=== PATIENT | female | born 1950 | race Caucasian/White ===

== ENCOUNTER 2019-09-01 16:30 | Observation (INO) | payer MEDICARE, OTHER ==
[2019-09-01] MEDS ORDERED: Sodium Chloride 0.9% 10 ML Syringe FLUSH PRN (16:45)
[2019-09-01] MEDS ORDERED: Sodium Chloride 0.9% 2.5 ML Syringe FLUSH PRN (16:45)
[2019-09-01] MEDS ORDERED: Meclizine 25 MG Tab PO ONE (17:03)
[2019-09-01] MEDS ORDERED: Sodium Chloride 0.9% 1,000 ML IV ONE (17:03)
[2019-09-01] MEDS ORDERED: Ondansetron 4 MG/2 ML SDV IVPUSH ONE (17:03)
--- NOTE | 2019-09-01 17:03 | EDM.PDOC ---
ED HPI GENERAL MEDICAL PROBLEM - General Chief Complaint: Cardiovascular Problem Stated Complaint: DIZZY Time Seen by Provider: 09/01/19 16:44 Source of Information: Reports: Patient History Limitations: Reports: No Limitations - History of Present Illness INITIAL COMMENTS - FREE TEXT/NARRATIVE: HISTORY AND PHYSICAL: History of present illness: Patient is a 69-year-old female who presents to the ED today with concern of dizziness and vomiting since this morning. Patient states when she woke up she went to go to the bathroom and felt as if she was off balance and like the room was spinning or tilted. Patient states when she got to the bathroom she felt nauseous and vomited. Patient states since then she is had a few episodes of this dizziness with vomiting. Patient states that if she lays still and does not move her head she does not have the dizziness but if she goes to turn or look in a different direction she feels dizzy and nauseous. Patient denies fever, chills, chest pain, shortness of breath, or cough. Denies headache, neck stiff ness, change in vision, syncope, or near syncope. Denies abdominal pain, diarrhea, constipation, or dysuria. Has not noted any blood in urine or stool. Patient has been eating and drinking appropriately. Review of systems: As per history of present illness and below otherwise all systems reviewed and negative. Past medical history: As per history of present illness and as reviewed below otherwise noncontributory. Surgical history: As per history of present illness and as reviewed below otherwise noncontributory. Social history: See social history for further information Family history: As per history of present illness and as reviewed below otherwise noncontributory. Physical exam: General: Patient is alert, oriented, and in no acute distress. Patient laying comfortably on exam table. HEENT: Atraumatic, normocephalic, pupils equal and reactive bilaterally, negative for conjunctival pallor or scleral icterus, mucous membranes moist, TMs normal bilaterally, throat clear, neck supple, nontender, trachea midline. No drooling or trismus noted. No meningeal signs. No hot potato voice noted. Lungs: Clear to auscultation, breath sounds equal bilaterally, chest nontender. Heart: S1S2, regular rate and rhythm without overt murmur Abdomen: Soft, nondistended, nontender. Negative for masses or hepatosplenomegaly. Negative for costovertebral tenderness. Pelvis: Stable nontender. Genitourinary: Deferred. Rectal: Deferred. Skin: Intact, warm, dry. No lesions or rashes noted. Extremities: Atraumatic, negative for cords or calf pain. Neurovascular unremarkable. Neuro: Awake, alert, oriented. Cranial nerves II through XII unremarkable. Cerebellum unremarkable. Motor and sensory unremarkable throughout. Exam nonfocal. Notes: Dr. Andrew verbally involved in patient care. Patient states she is developing a slight headache and requesting tylenol. Dr. Owens consulted on patient and will admit to observation on telemetry. Voices understanding and is agreeable to plan of care. Denies any further questions or concerns at this time. Diagnostics: CBC, CMP, UA, EKG, CXR, Trop, head CT, orthostatic vitals, lactate, blood culture x 2, urine culture Therapeutics: NS, meclizine, zofran, Tylenol Impression: Leukocytosis, etiology unknown Dizziness Plan: Admit to observation to Dr. Owens on telemetry Definitive disposition and diagnosis as appropriate pending reevaluation and review of above. Chest Pain Score (Numeric/FACES): 1 - Related Data Allergies Allergy/AdvReac Type Severity Reaction Status Date / Time Sulfa (Sulfonamide Allergy Rash Verified 09/01/19 16:39 Antibiotics) Home Meds: Home Meds Fish Oil/[place]-3 Fatty Acids [Fish Oil 1,000 MG] 1 each PO ASDIRECTED 09/01/19 [ History] Metoprolol Succinate 50 mg PO ASDIRECTED 09/01/19 [History] Past Medical History Cardiovascular History: Reports: Hypertension - Infectious Disease History Infectious Disease History: Reports: None Social & Family History - Family History Family Medical History: Noncontributory - Tobacco Use Smoking Status *Q: Never Smoker Second Hand Smoke Exposure: No - Caffeine Use Caffeine Use: Reports: None - Recreational Drug Use Recreational Drug Use: No ED ROS GENERAL - Review of Systems Review Of Systems: Comprehensive ROS is negative, except as noted in HPI. ED EXAM, GENERAL - Physical Exam Exam: See Below (see dictation) Course - Vital Signs Last Recorded V/S: Last Vital Signs Temp 97.4 F 09/01/19 16:40 Pulse 117 H 09/01/19 16:40 Resp 18 09/01/19 16:40 BP 180/90 H 09/01/19 16:40 Pulse Ox 97 09/01/19 16:40 Orthostatic Blood Pressure [ 181/88 Standing] Orthostatic Blood Pressure [ 171/85 Sitting] Orthostatic Blood Pressure [ 162/87 Supine] - Orders/Labs/Meds Orders: Active Orders 24 hr Category Date Time Status Admission Status [Patient Status] [ADT] Stat ADT 09/01/19 19:26 Ordered EKG Documentation Completion [RC] STAT Care 09/01/19 16:45 Active Orthostatic Vital Signs [RC] ASDIRECTED Care 09/01/19 16:45 Active CULTURE BLOOD [BC] Stat Lab 09/01/19 19:16 Ordered CULTURE BLOOD [BC] Stat Lab 09/01/19 19:16 Ordered LACTATE WITH REFLEX [BG] Stat Lab 09/01/19 19:16 Ordered Sodium Chloride 0.9% [Saline Flush] Med 09/01/19 16:45 Active 10 ml FLUSH ASDIRECTED PRN Sodium Chloride 0.9% [Saline Flush] Med 09/01/19 16:45 Active 2.5 ml FLUSH ASDIRECTED PRN Blood Culture x2 Reflex Set [OM.PC] Stat Oth 09/01/19 19:16 Ordered Saline Lock Insert [OM.PC] Stat Oth 09/01/19 16:45 Ordered Medication Orders Sodium Chloride (Saline Flush) 10 ml FLUSH ASDIRECTED PRN PRN Reason: Keep Vein Open Last Admin: 09/01/19 17:12 Dose: 10 ml Sodium Chloride (Saline Flush) 2.5 ml FLUSH ASDIRECTED PRN PRN Reason: Keep Vein Open Last Admin: 09/01/19 17:12 Dose: 2.5 ml Labs: Laboratory Tests 09/01/19 09/01/19 09/01/19 Range/Units 16:45 16:45 18:27 WBC 38.87 H (4.0-11.0) K/uL RBC 4.85 (4.30-5.90) M/uL Hgb 15.1 (12.0-16.0) g/dL Hct 44.2 (36.0-46.0) % MCV 91.1 (80.0-98.0) fL MCH 31.1 (27.0-32.0) pg MCHC 34.2 (31.0-37.0) g/dL RDW Std Deviation 43.3 (28.0-62.0) fl RDW Coeff of Sujit 13 (11.0-15.0) % Plt Count 325 (150-400) K/uL MPV 10.90 (7.40-12.00) fL Add Manual Diff YES Neutrophils % (Manual) 32 L (48.0-80.0) % Lymphocytes % (Manual) 60 H (16.0-40.0) % Monocytes % (Manual) 7 (0.0-15.0) % Eosinophils % (Manual) 1 (0.0-7.0) % Nucleated RBC % 0.0 /100WBC Absolute Seg Neuts 12.4 H (1.4-5.7) Band Neutrophils # 23.3 Lymphocytes # (Manual) 23.3 H (0.6-2.4) Monocytes # (Manual) 2.7 H (0.0-0.8) Eosinophils # (Manual) 0.4 (0.0-0.7) Nucleated RBCs # 0 K/uL Atypical Lymphocytes MODERATE Smudge Cells FEW Sodium 142 (136-145) mmol/L Potassium 3.8 (3.5-5.1) mmol/L Chloride 103 (98-107) mmol/L Carbon Dioxide 28.6 (21.0-32.0) mmol/L BUN 17 (7.0-18.0) mg/dL Creatinine 0.8 (0.6-1.0) mg/dL Est Cr Clr Drug Dosing 50.08 mL/min Estimated GFR (MDRD) > 60.0 ml/min Glucose 116 H (74-106) mg/dL Calcium 10.0 (8.5-10.1) mg/dL Total Bilirubin 0.5 (0.2-1.0) mg/dL AST 19 (15-37) IU/L ALT 36 (14-63) IU/L Alkaline Phosphatase 49 (46-116) U/L Troponin I < 0.050 (0.000-0.056) ng/mL Total Protein 7.9 (6.4-8.2) g/dL Albumin 4.6 (3.4-5.0) g/dL Globulin 3.3 (2.6-4.0) g/dL Albumin/Globulin Ratio 1.4 (0.9-1.6) Lipase 201 (73-393) U/L Urine Color YELLOW Urine Appearance CLEAR Urine pH 6.0 (5.0-8.0) Ur Specific [place] 1.015 (1.001-1.035) Urine Protein NEGATIVE (NEGATIVE) mg/dL Urine Glucose (UA) NEGATIVE (NEGATIVE) mg/dL Urine Ketones NEGATIVE (NEGATIVE) mg/dL Urine Occult Blood NEGATIVE (NEGATIVE) Urine Nitrite NEGATIVE (NEGATIVE) Urine Bilirubin NEGATIVE (NEGATIVE) Urine Urobilinogen 0.2 (<2.0) EU/dL Ur Leukocyte Esterase NEGATIVE (NEGATIVE) Meds: Medications Generic Name Dose Route Start Last Admin Trade Name Freq PRN Reason Stop Dose Admin Sodium Chloride 10 ml 09/01/19 16:45 09/01/19 17:12 Saline Flush FLUSH 10 ml ASDIRECTED PRN Administration Keep Vein Open Sodium Chloride 2.5 ml 09/01/19 16:45 09/01/19 17:12 Saline Flush FLUSH 2.5 ml ASDIRECTED PRN Administration Keep Vein Open Discontinued Medications Generic Name Dose Route Start Last Admin Trade Name Freq PRN Reason Stop Dose Admin Acetaminophen 1,000 mg 09/01/19 18:37 09/01/19 18:48 Tylenol Extra Strength PO 09/01/19 18:38 1,000 mg ONETIME ONE Administration Sodium Chloride 1,000 mls @ 999 mls/hr 09/01/19 17:03 09/01/19 17:10 Normal Saline IV 09/01/19 18:03 999 mls/hr STAT ONE Administration Meclizine HCl 25 mg 09/01/19 17:03 09/01/19 17:11 Antivert PO 09/01/19 17:04 25 mg ONETIME ONE Administration Ondansetron HCl 4 mg 09/01/19 17:03 09/01/19 17:11 Zofran IVPUSH 09/01/19 17:04 4 mg ONETIME ONE Administration Departure - Departure Time of Disposition: 19:33 Disposition: Refer to Observation Clinical Impression: Dizziness Leukocytosis Qualifiers: Leukocytosis type: unspecified Qualified Code(s): D72.829 - Elevated white blood cell count, unspecified Forms: ED Department Discharge Sepsis Event Note - Evaluation Sepsis Screening Result: No Definite Risk - Focused Exam Vital Signs: Vital Signs Temp Pulse Resp BP Pulse Ox 09/01/19 16:40 97.4 F 117 H 18 180/90 H 97 Date Exam was Performed: 09/01/19 Time Exam was Performed: 19:32 - My Orders Last 24 Hours: My Active Orders 09/01/19 16:45 EKG Documentation Completion [RC] STAT Orthostatic Vital Signs [RC] ASDIRECTED Sodium Chloride 0.9% [Saline Flush] 10 ml FLUSH ASDIRECTED PRN Sodium Chloride 0.9% [Saline Flush] 2.5 ml FLUSH ASDIRECTED PRN Saline Lock Insert [OM.PC] Stat 09/01/19 19:16 CULTURE BLOOD [BC] Stat CULTURE BLOOD [BC] Stat LACTATE WITH REFLEX [BG] Stat Blood Culture x2 Reflex Set [OM.PC] Stat 09/01/19 19:26 Admission Status [Patient Status] [ADT] Stat - Assessment/Plan Last 24 Hours: My Active Orders 09/01/19 16:45 EKG Documentation Completion [RC] STAT Orthostatic Vital Signs [RC] ASDIRECTED Sodium Chloride 0.9% [Saline Flush] 10 ml FLUSH ASDIRECTED PRN Sodium Chloride 0.9% [Saline Flush] 2.5 ml FLUSH ASDIRECTED PRN Saline Lock Insert [OM.PC] Stat 09/01/19 19:16 CULTURE BLOOD [BC] Stat CULTURE BLOOD [BC] Stat LACTATE WITH REFLEX [BG] Stat Blood Culture x2 Reflex Set [OM.PC] Stat 09/01/19 19:26 Admission Status [Patient Status] [ADT] Stat
--- NOTE | 2019-09-01 17:11 | CR ---
Chest: Portable AP view of the chest was obtained. Comparison: No previous chest x-ray. Large hiatal hernia is seen. Heart size is within normal limits for portable technique. Upper mediastinum is normal. Minimal atelectasis within the lateral left costophrenic angle is seen. Lungs are clear with no acute parenchymal change. Bony structures are grossly intact. Impression: 1. Slight atelectasis within the lateral left costophrenic angle. 2. Large hiatal hernia. 3. Nothing acute is otherwise seen. Diagnostic code #2 This report was dictated in [place] Standard Time
[2019-09-01 17:23] LABS: BLOOD UREA NITROGEN,BUN 17 mg/dL (7.0-18.0); CARBON DIOXIDE,CO2 28.6 mmol/L (21.0-32.0); CHLORIDE,CL 103 mmol/L (98-107); GLUCOSE RANDOM 116 mg/dL (74-106); LIPASE 201 U/L (73-393); POTASSIUM,K 3.8 mmol/L (3.5-5.1); SODIUM,NA 142 mmol/L (136-145)
--- NOTE | 2019-09-01 17:45 | CT ---
Head CT Technique: Multiple axial sections through the brain were obtained. Intravenous contrast was not utilized. Comparison: No prior intracranial imaging is available. Findings: Ventricles along with basal cisterns and sulci over the convexities are within normal limits for the patient's age. No abnormal parenchymal densities are seen. No evidence of intracranial hemorrhage. No midline shift or mass effect is seen. Bone window settings were reviewed. No acute calvarial abnormality is appreciated. Mastoid sinuses are clear. Paranasal sinuses show nothing acute. Mild atherosclerotic calcification is seen within the carotid siphon. Impression: 1. Nothing acute is seen on noncontrast head CT exam. Diagnostic code #2 Study was dictated in [place] Standard Time
[2019-09-01] MEDS ORDERED: Acetaminophen 500 MG Tab PO ONE (18:37)
[2019-09-01] MEDS ORDERED: Albuterol/Ipratropium 3.0-0.5 MG/3 ML Neb Soln NEB PRN (20:21)
[2019-09-01] MEDS ORDERED: Ondansetron 4 MG/2 ML SDV IVPUSH PRN (20:21)
[2019-09-01] MEDS ORDERED: Acetaminophen 325 MG Tab PO PRN (20:21)
--- NOTE | 2019-09-01 20:36 | PCM.HP.2 ---
H&P History of Present Illness - General Date of Service: 09/01/19 Admit Problem/Dx: Admission Diagnosis/Problem Admission Diagnosis/Problem Leukocytosis - History of Present Illness Initial Comments - Free Text/Narative: Patient is a 69-year-old female with PMH of HTN, sinus tachycardia who presents to the ED today with concern of dizziness and vomiting since this morning. According to the Patient when she woke up this morning, she got out of the bed to get to the bathroom, during ambulation she felt off balance, states she felt the whole room was spinning around her. Patient also c/o few episodes of nausea /vomiting there after. Symptoms are aggravated by moving/turning her head. Sttaes she has been feeling dizzy once a week last few months but not as persistent as today. Endorses some sinus pressure and running nose upon further questioning. Patient denies fever, chills, chest pain, shortness of breath, or cough. Denies headache, neck stiff ness, change in vision, syncope, or near syncope. Denies abdominal pain, diarrhea, constipation, or dysuria. Has not noted any blood in urine or stool. Patient has been eating and drinking appropriately. In the ER CT scan head was negative, was hypertensive, Lab work revealed leucocytosis, with lymphocytosis. Patient was admitted for Further management of her symptoms. Onset of Symptoms: Reports: Today Duration of Symptoms: Reports: Hour(s): Severity: Moderate Improves with: Reports: Immobilization Worsens with: Reports: Movement Associated Symptoms: Reports: Nausea/Vomiting Chest Pain Score (Numeric/FACES): 1 - Related Data Allergies/Adverse Reactions: Allergies Allergy/AdvReac Type Severity Reaction Status Date / Time Sulfa (Sulfonamide Allergy Mild Rash Verified 09/01/19 21:07 Antibiotics) Home Medications: Home Meds Calcium Carb/Vitamin D3/Vit K1 [Calcium + D Soft Chewable Tab] 1 tab PO ACBREAKFAST 09/01/19 [History] Famotidine [Pepcid] 20 mg PO DAILY 09/01/19 [History] Fish Oil/[place]-3 Fatty Acids [Fish Oil 1,000 MG] 1 each PO DAILY 09/01/19 [ History] Metoprolol Succinate 50 mg PO DAILY 09/01/19 [History] Past Medical History Cardiovascular History: Reports: Hypertension - Infectious Disease History Infectious Disease History: Reports: None Social & Family History - Family History Family Medical History: Noncontributory - Tobacco Use Smoking Status *Q: Never Smoker Second Hand Smoke Exposure: No - Caffeine Use Caffeine Use: Reports: None - Recreational Drug Use Recreational Drug Use: No H&P Review of Systems - Review of Systems: General: Denies: Fever, Chills, Malaise, Weakness HEENT: Denies: Dysphasia, Ear Pain, Eye Pain Pulmonary: Denies: Shortness of Breath, Wheezing Cardiovascular: Denies: Chest Pain, Palpitations, Dyspnea on Exertion Gastrointestinal: Reports: Nausea, Vomiting. Denies: Abdominal Pain, Anorexia, Black Stool Genitourinary: Denies: Dysuria, Frequency, Burning Musculoskeletal: Denies: Neck Pain, Shoulder Pain, Arm Pain Skin: Denies: Cyanosis, Jaundice, Mottled Psychiatric: Denies: Confusion, Depression, Mood Lability Neurological: Reports: Dizziness. Denies: Confusion, Headache Exam - Vital Signs Vital Signs: Last Vital Signs Temp 36.3 C 09/01/19 16:40 Pulse 117 H 09/01/19 16:40 Resp 18 09/01/19 16:40 BP 180/90 H 09/01/19 16:40 Pulse Ox 97 09/01/19 16:40 Orthostatic Blood Pressure [ 181/88 Standing] Orthostatic Blood Pressure [ 171/85 Sitting] Orthostatic Blood Pressure [ 162/87 Supine] Weight: 72.575 kg - Exam General: Alert, Oriented Neck: Supple, Trachea Midline Lungs: Clear to Auscultation, Normal Respiratory Effort Cardiovascular: Regular Rate, Regular Rhythm GI/Abdominal Exam: Normal Bowel Sounds, Soft, Non-Tender Back Exam: Normal Inspection, Full Range of Motion Peripheral Pulses: 3+: Dorsalis Pedis (L), Dorsalis Pedis (R) Skin: Warm Neurological: Cranial Nerves Intact Neuro Extensive - Mental Status: Alert, Oriented x3 Neuro Extensive - Motor, Sensory, Reflexes: CN II-XII Intact, Normal Reflexes - Patient Data Lab Results Last 24 hrs: Laboratory Results - last 24 hr 09/01/19 09/01/19 09/01/19 Range/Units 16:45 16:45 17:50 WBC 38.87 H (4.0-11.0) K/uL RBC 4.85 (4.30-5.90) M/uL Hgb 15.1 (12.0-16.0) g/dL Hct 44.2 (36.0-46.0) % MCV 91.1 (80.0-98.0) fL MCH 31.1 (27.0-32.0) pg MCHC 34.2 (31.0-37.0) g/dL RDW Std Deviation 43.3 (28.0-62.0) fl RDW Coeff of Sujit 13 (11.0-15.0) % Plt Count 325 (150-400) K/uL MPV 10.90 (7.40-12.00) fL Add Manual Diff YES Neutrophils % (Manual) 32 L (48.0-80.0) % Lymphocytes % (Manual) 60 H (16.0-40.0) % Monocytes % (Manual) 7 (0.0-15.0) % Eosinophils % (Manual) 1 (0.0-7.0) % Nucleated RBC % 0.0 /100WBC Absolute Seg Neuts 12.4 H (1.4-5.7) Band Neutrophils # 23.3 Lymphocytes # (Manual) 23.3 H (0.6-2.4) Monocytes # (Manual) 2.7 H (0.0-0.8) Eosinophils # (Manual) 0.4 (0.0-0.7) Nucleated RBCs # 0 K/uL Atypical Lymphocytes MODERATE Smudge Cells FEW Lactate 1.8 (0.20-2.00) mmol/L Sodium 142 (136-145) mmol/L Potassium 3.8 (3.5-5.1) mmol/L Chloride 103 (98-107) mmol/L Carbon Dioxide 28.6 (21.0-32.0) mmol/L BUN 17 (7.0-18.0) mg/dL Creatinine 0.8 (0.6-1.0) mg/dL Est Cr Clr Drug Dosing 50.08 mL/min Estimated GFR (MDRD) > 60.0 ml/min Glucose 116 H (74-106) mg/dL Calcium 10.0 (8.5-10.1) mg/dL Total Bilirubin 0.5 (0.2-1.0) mg/dL AST 19 (15-37) IU/L ALT 36 (14-63) IU/L Alkaline Phosphatase 49 (46-116) U/L Troponin I < 0.050 (0.000-0.056) ng/mL Total Protein 7.9 (6.4-8.2) g/dL Albumin 4.6 (3.4-5.0) g/dL Globulin 3.3 (2.6-4.0) g/dL Albumin/Globulin Ratio 1.4 (0.9-1.6) Lipase 201 (73-393) U/L Urine Color Urine Appearance Urine pH (5.0-8.0) Ur Specific [place] (1.001-1.035) Urine Protein (NEGATIVE) mg/dL Urine Glucose (UA) (NEGATIVE) mg/dL Urine Ketones (NEGATIVE) mg/dL Urine Occult Blood (NEGATIVE) Urine Nitrite (NEGATIVE) Urine Bilirubin (NEGATIVE) Urine Urobilinogen (<2.0) EU/dL Ur Leukocyte Esterase (NEGATIVE) 09/01/19 Range/Units 18:27 WBC (4.0-11.0) K/uL RBC (4.30-5.90) M/uL Hgb (12.0-16.0) g/dL Hct (36.0-46.0) % MCV (80.0-98.0) fL MCH (27.0-32.0) pg MCHC (31.0-37.0) g/dL RDW Std Deviation (28.0-62.0) fl RDW Coeff of Sujit (11.0-15.0) % Plt Count (150-400) K/uL MPV (7.40-12.00) fL Add Manual Diff Neutrophils % (Manual) (48.0-80.0) % Lymphocytes % (Manual) (16.0-40.0) % Monocytes % (Manual) (0.0-15.0) % Eosinophils % (Manual) (0.0-7.0) % Nucleated RBC % /100WBC Absolute Seg Neuts (1.4-5.7) Band Neutrophils # Lymphocytes # (Manual) (0.6-2.4) Monocytes # (Manual) (0.0-0.8) Eosinophils # (Manual) (0.0-0.7) Nucleated RBCs # K/uL Atypical Lymphocytes Smudge Cells Lactate (0.20-2.00) mmol/L Sodium (136-145) mmol/L Potassium (3.5-5.1) mmol/L Chloride (98-107) mmol/L Carbon Dioxide (21.0-32.0) mmol/L BUN (7.0-18.0) mg/dL Creatinine (0.6-1.0) mg/dL Est Cr Clr Drug Dosing mL/min Estimated GFR (MDRD) ml/min Glucose (74-106) mg/dL Calcium (8.5-10.1) mg/dL Total Bilirubin (0.2-1.0) mg/dL AST (15-37) IU/L ALT (14-63) IU/L Alkaline Phosphatase (46-116) U/L Troponin I (0.000-0.056) ng/mL Total Protein (6.4-8.2) g/dL Albumin (3.4-5.0) g/dL Globulin (2.6-4.0) g/dL Albumin/Globulin Ratio (0.9-1.6) Lipase (73-393) U/L Urine Color YELLOW Urine Appearance CLEAR Urine pH 6.0 (5.0-8.0) Ur Specific [place] 1.015 (1.001-1.035) Urine Protein NEGATIVE (NEGATIVE) mg/dL Urine Glucose (UA) NEGATIVE (NEGATIVE) mg/dL Urine Ketones NEGATIVE (NEGATIVE) mg/dL Urine Occult Blood NEGATIVE (NEGATIVE) Urine Nitrite NEGATIVE (NEGATIVE) Urine Bilirubin NEGATIVE (NEGATIVE) Urine Urobilinogen 0.2 (<2.0) EU/dL Ur Leukocyte Esterase NEGATIVE (NEGATIVE) Result Diagrams: 09/01/19 16:45 09/01/19 16:45 Julito Results Last 24 hrs: Microbiology 09/01/19 19:50 Anaerobic Blood Culture - Final Blood - Venous - Lab Draw Sepsis Event Note - Evaluation Sepsis Screening Result: No Definite Risk - Focused Exam Vital Signs: Vital Signs Temp Pulse Resp BP Pulse Ox 09/01/19 16:40 36.3 C 117 H 18 180/90 H 97 Date Exam was Performed: 09/01/19 Time Exam was Performed: 22:05 - Problem List (1) HTN (hypertension) SNOMED Code(s): 27381125 ICD Code: I10 - ESSENTIAL (PRIMARY) HYPERTENSION Status: Acute Current Visit: Yes (2) Dizziness SNOMED Code(s): 269107092, 426032460 ICD Code: R42 - DIZZINESS AND GIDDINESS Status: Acute Current Visit: Yes (3) Leukocytosis SNOMED Code(s): 712677751, 929146780 ICD Code: D72.829 - ELEVATED WHITE BLOOD CELL COUNT, UNSPECIFIED Status: Acute Current Visit: Yes Qualifiers: Leukocytosis type: unspecified Qualified Code(s): D72.829 - Elevated white blood cell count, unspecified Problem List Initiated/Reviewed/Updated: Yes Orders Last 24hrs: Active Orders 24 hr Category Date Time Status Admission Status [Patient Status] [ADT] Stat ADT 09/01/19 19:26 Active Ambulate [RC] ASDIRECTED Care 09/01/19 20:21 Active Antiembolic Devices [RC] PER UNIT ROUTINE Care 09/01/19 20:23 Active EKG Documentation Completion [RC] STAT Care 09/01/19 16:45 Active Orthostatic Vital Signs [RC] ASDIRECTED Care 09/01/19 16:45 Active Oxygen Therapy [RC] PRN Care 09/01/19 20:21 Active Pulse Oximetry [RC] PRN Care 09/01/19 20:22 Active RT Aerosol Therapy [RC] ASDIRECTED Care 09/01/19 20:24 Active Telemetry Monitoring [Cardiac Monitoring] [RC] . Care 09/01/19 19:58 Active DIRECTED VTE/DVT Education [RC] PER UNIT ROUTINE Care 09/01/19 20:21 Active Vital Signs [RC] Q4H Care 09/01/19 20:21 Active Heart Healthy Diet [DIET] Diet 09/01/19 Breakfast Active C-REACTIVE PROTEIN [CHEM] Routine Lab 09/01/19 20:33 Ordered CBC WITH AUTO DIFF [HEME] AM Lab 09/02/19 05:11 Ordered CULTURE BLOOD [BC] Stat Lab 09/01/19 19:40 Received CULTURE BLOOD [BC] Stat Lab 09/01/19 19:50 Results CULTURE URINE [RM] Stat Lab 09/01/19 18:27 Received ESR [SEDIMENTATION RATE AUTO] [HEME] Routine Lab 09/01/19 20:33 Ordered LIPID PANEL [CHEM] AM Lab 09/02/19 05:11 Ordered MAGNESIUM [CHEM] AM Lab 09/02/19 05:11 Ordered PERIPH BLOOD SMEAR PATHOLOGIST [HEME] Routine Lab 09/01/19 20:28 Ordered PHOSPHORUS [CHEM] AM Lab 09/02/19 05:11 Ordered TSH [CHEM] Routine Lab 09/01/19 20:33 Ordered Acetaminophen [Tylenol] Med 09/01/19 20:21 Active 650 mg PO Q4H PRN Albuterol/Ipratropium [DuoNeb 3.0-0.5 MG/3 ML] Med 09/01/19 20:21 Active 3 ml NEB Q4HRRT PRN Metoprolol Succinate [Toprol XL] Med 09/01/19 20:45 Ordered 50 mg PO ASDIRECTED Ondansetron [Zofran] Med 09/01/19 20:21 Active 4 mg IVPUSH Q4H PRN Sodium Chloride 0.9% [Saline Flush] Med 09/01/19 16:45 Active 10 ml FLUSH ASDIRECTED PRN Sodium Chloride 0.9% [Saline Flush] Med 09/01/19 16:45 Active 2.5 ml FLUSH ASDIRECTED PRN Blood Culture x2 Reflex Set [OM.PC] Stat Oth 09/01/19 19:16 Ordered Saline Lock Insert [OM.PC] Stat Oth 09/01/19 16:45 Ordered Sequential Compression Device [OM.PC] Per Unit Routine Oth 09/01/19 20:22 Ordered Resuscitation Status Routine Resus Stat 09/01/19 20:21 Ordered Medication Orders Acetaminophen (Tylenol) 650 mg PO Q4H PRN PRN Reason: Pain (Mild 1-3)/fever Albuterol/Ipratropium (Duoneb 3.0-0.5 Mg/3 Ml) 3 ml NEB Q4HRRT PRN PRN Reason: Shortness Of Breath/wheezing Metoprolol Succinate (Toprol Xl) 50 mg PO ASDIRECTED DEVIKA Ondansetron HCl (Zofran) 4 mg IVPUSH Q4H PRN PRN Reason: Nausea/Vomiting Sodium Chloride (Saline Flush) 10 ml FLUSH ASDIRECTED PRN PRN Reason: Keep Vein Open Last Admin: 09/01/19 17:12 Dose: 10 ml Sodium Chloride (Saline Flush) 2.5 ml FLUSH ASDIRECTED PRN PRN Reason: Keep Vein Open Last Admin: 09/01/19 17:12 Dose: 2.5 ml Assessment/Plan Comment:: Patient is a 69 y/o F comes in for evaluation of dizziness CT scan head negative Dizziness and with N/V seem to be peripheral in nature, no focal deficits, Will obtain MRI to rule out posterior circulation stroke Will cont to monitor vitals closely Hold meclizine for now Was found to have leucocytosis No fever, no source so far, i dont suspect sepsis f/u blood cultures f/u CRP, ESR, Peripheral smear Repeat CBC in AM, if persistent lymphocytosis, will need outpatient evaluation for possible leukemia cont Home meds
[2019-09-01] MEDS ORDERED: Metoprolol Succinate 50 MG Tab.ER PO SCH (20:45)
[2019-09-01] MEDS ORDERED: atorvaSTATin 40 MG Tab PO SCH (21:00)
[2019-09-01] MEDS: Aspirin 81 MG Tab.Chew PO SCH (23:20)
[2019-09-02] MEDS ORDERED: Metoprolol Succinate 50 MG Tab.ER PO SCH ×2 (09:00)
[2019-09-02] MEDS ORDERED: Fluticasone Propionate Nasal Spray 16 GM Bottle NASBOTH SCH (09:15)
[2019-09-02] MEDS: Aspirin 81 MG Tab.Chew PO SCH (09:18)
[2019-09-02] MEDS ORDERED: Gadobenate Dimeglumine 529 MG/ML 20 ML SDV IVPUSH STA (09:48)
--- NOTE | 2019-09-02 11:16 | MR ---
INDICATION: Dizziness. TECHNIQUE: MRI brain: Multiplanar multisequence MR images were acquired prior to and following administration of intravenous contrast. MRA head: 3D [id number] images were acquired. MRA neck: 2D and 3D slsj-[id number] images were acquired. COMPARISON: CT brain 09/01/2019. FINDINGS: MRI brain: The ventricles and sulci are within normal limits for patient age. No mass effect or midline shift. Few small T2 FLAIR hyperintensities in the supratentorial white matter, nonspecific. No intracranial hemorrhage or pathologic extra-axial fluid collection. No diffusion restriction to suggest acute infarction. No pathologic intracranial enhancement. The major arterial flow voids of the skullbase are preserved. The globes are symmetric in size. The paranasal sinuses are well aerated. The mastoid air cells are clear. MRA head: The visualized internal carotid, middle cerebral, and anterior cerebral arteries are patent without significant narrowing. The vertebral, basilar, and posterior cerebral arteries are patent without significant narrowing. No intracranial aneurysm. MRA neck: The left vertebral artery is dominant. No significant narrowing of the common carotid, internal carotid, external carotid, or vertebral arteries. IMPRESSION: 1. No acute intracranial abnormality. 2. No MRA abnormality of the visualized intracranial or major cervical arteries. 3. Few small T2 FLAIR hyperintensities in the supratentorial white matter are nonspecific, though differential considerations favor sequelae of minimal chronic microvascular ischemic changes or migraine headaches. Dictated by Andrea Mabry MD @ Sep 02 2019 11:15AM Signed by Dr. Andrea Mabry @ Sep 02 2019 11:15AM
--- NOTE | 2019-09-02 11:16 | MR ---
INDICATION: Dizziness. TECHNIQUE: MRI brain: Multiplanar multisequence MR images were acquired prior to and following administration of intravenous contrast. MRA head: 3D frgh-eq-[id number] images were acquired. MRA neck: 2D and 3D mrod-ja-plqmre images were acquired. COMPARISON: CT brain 09/01/2019. FINDINGS: MRI brain: The ventricles and sulci are within normal limits for patient age. No mass effect or midline shift. Few small T2 FLAIR hyperintensities in the supratentorial white matter, nonspecific. No intracranial hemorrhage or pathologic extra-axial fluid collection. No diffusion restriction to suggest acute infarction. No pathologic intracranial enhancement. The major arterial flow voids of the skullbase are preserved. The globes are symmetric in size. The paranasal sinuses are well aerated. The mastoid air cells are clear. MRA head: The visualized internal carotid, middle cerebral, and anterior cerebral arteries are patent without significant narrowing. The vertebral, basilar, and posterior cerebral arteries are patent without significant narrowing. No intracranial aneurysm. MRA neck: The left vertebral artery is dominant. No significant narrowing of the common carotid, internal carotid, external carotid, or vertebral arteries. IMPRESSION: 1. No acute intracranial abnormality. 2. No MRA abnormality of the visualized intracranial or major cervical arteries. 3. Few small T2 FLAIR hyperintensities in the supratentorial white matter are nonspecific, though differential considerations favor sequelae of minimal chronic microvascular ischemic changes or migraine headaches. Dictated by Andrea Mabry MD @ Sep 02 2019 11:06AM Signed by Dr. Andrea Mabry @ Sep 02 2019 11:15AM
--- NOTE | 2019-09-02 12:14 | PCM.DCSUM1 ---
Discharge Summary - Hospital Course Brief History: Patient is a 69-year-old female with PMH of HTN, sinus tachycardia who presents to the ED today with concern of dizziness and vomiting since this morning. According to the Patient when she woke up this morning, she got out of the bed to get to the bathroom, during ambulation she felt off balance, states she felt the whole room was spinning around her. Patient also c /o few episodes of nausea/vomiting there after. Symptoms are aggravated by moving/turning her head. Sttaes she has been feeling dizzy once a week last few months but not as persistent as today. Endorses some sinus pressure and running nose upon further questioning. Patient denies fever, chills, chest pain, shortness of breath, or cough. Denies headache, neck stiff ness, change in vision, syncope, or near syncope. Denies abdominal pain, diarrhea, constipation , or dysuria. Has not noted any blood in urine or stool. Patient has been eating and drinking appropriately. In the ER CT scan head was negative, was hypertensive, Lab work revealed leucocytosis, with lymphocytosis. Patient was admitted for Further management of her symptoms. Diagnosis: Stroke: No - Discharge Data Discharge Date: 09/02/19 Discharge Disposition: Home, Self-Care 01 Condition: Good - Referral to Home Health Primary Care Physician: Jerardo Masters MD - Patient Summary/Data Consults: Consultations 09/02/19 08:14 Consult to Physical Therapy [PT Evaluation and Treatment] [CONS] Routine - Patient Instructions Diet: Heart Healthy Diet Activity: No Strenuous Activities Showering/Bathing: December Shower Notify Provider of: Fever, Increased Pain, Swelling and Redness, Drainage, Nausea and/or Vomiting - Discharge Plan *PRESCRIPTION DRUG MONITORING PROGRAM REVIEWED*: Not Applicable *COPY OF PRESCRIPTION DRUG MONITORING REPORT IN PATIENT RILEY: Not Applicable Home Medications: Home Meds Calcium Carb/Vitamin D3/Vit K1 [Calcium + D Soft Chewable Tab] 1 tab PO ACBREAKFAST 09/01/19 [History] Famotidine [Pepcid] 20 mg PO DAILY 09/01/19 [History] Fish Oil/[place]-3 Fatty Acids [Fish Oil 1,000 MG] 1 each PO DAILY 09/01/19 [ History] Metoprolol Succinate 50 mg PO DAILY 09/01/19 [History] Fluticasone Propionate [Flonase] 1 spray TAMIKO DAILY bottle 09/02/19 [Rx] Oxygen Therapy Mode: Room Air Patient Handouts: Nausea and Vomiting, Adult, [id number]-[id number], Dizziness, Easy-to- Read Referrals: [facility] [Outside] Jerardo Masters MD [Primary Care Provider] - 09/08/19 11:00 am - Discharge Summary/Plan Comment DC Time >30 min.: No Discharge Summary/Plan Comment: Admitting Diagnoses: Dizziness Leukocytosis Discharge Diagnoses: Dizziness Leukocytosis Other PMH: Tachycardia Soniya was admitted secondary to dizziness, which likely is peripheral in nature, consider BPPV. She was not given any Meclizine overnight and has improved today. PT consulted for vestibular work up, negative for BPPV but had improved with Eply maneuver to L, outpatient script provided for PT if symptoms return in 1 week. MRA head and neck along with MRI brain obtained to rule out posterior CVA, these returned negative. She is to continue Metoprolol and home medications. May consider outpatient work for dizziness. Leukocytosis noted as well. no infectious source noted. patient is otherwise feeling well. She denies known history of this. Peripheral smear sent as well as referral to [facility] for hematology follow up was sent. Patient and request [place] as they have family [place]. Follow up with PCP in 1 week to monitor labwork and follow up on referral status as [place] will be calling her to arrange appointment. She is to return to ED or clinic if concerns should arise. - Patient Data Vitals - Most Recent: Last Vital Signs Temp 98.8 F 09/02/19 11:00 Pulse 84 09/02/19 11:00 Resp 16 09/02/19 11:00 BP 133/64 09/02/19 11:00 Pulse Ox 93 L 09/02/19 11:00 Orthostatic Blood Pressure [ 181/88 Standing] Orthostatic Blood Pressure [ 171/85 Sitting] Orthostatic Blood Pressure [ 162/87 Supine] Weight - Most Recent: 72.575 kg I&O - Last 24 hours: Intake & Output 09/01/19 09/02/19 09/02/19 22:59 06:59 14:59 Intake Total 220 Output Total 500 Balance -280 Lab Results - Last 24 hrs: Laboratory Results - last 24 hr 09/01/19 09/01/19 09/01/19 Range/Units 16:45 16:45 16:45 WBC 38.87 H (4.0-11.0) K/uL RBC 4.85 (4.30-5.90) M/uL Hgb 15.1 (12.0-16.0) g/dL Hct 44.2 (36.0-46.0) % MCV 91.1 (80.0-98.0) fL MCH 31.1 (27.0-32.0) pg MCHC 34.2 (31.0-37.0) g/dL RDW Std Deviation 43.3 (28.0-62.0) fl RDW Coeff of Sujit 13 (11.0-15.0) % Plt Count 325 (150-400) K/uL MPV 10.90 (7.40-12.00) fL Add Manual Diff YES Neutrophils % (Manual) 32 L (48.0-80.0) % Band Neutrophils % % Lymphocytes % (Manual) 60 H (16.0-40.0) % Monocytes % (Manual) 7 (0.0-15.0) % Eosinophils % (Manual) 1 (0.0-7.0) % Nucleated RBC % 0.0 /100WBC Absolute Seg Neuts 12.4 H (1.4-5.7) Band Neutrophils # 23.3 Lymphocytes # (Manual) 23.3 H (0.6-2.4) Monocytes # (Manual) 2.7 H (0.0-0.8) Eosinophils # (Manual) 0.4 (0.0-0.7) Nucleated RBCs # 0 K/uL Atypical Lymphocytes MODERATE Smudge Cells FEW Smear Path Review SENT TO PATHOLOGY ESR (0-29) mm/hr Lactate (0.20-2.00) mmol/L Sodium 142 (136-145) mmol/L Potassium 3.8 (3.5-5.1) mmol/L Chloride 103 (98-107) mmol/L Carbon Dioxide 28.6 (21.0-32.0) mmol/L BUN 17 (7.0-18.0) mg/dL Creatinine 0.8 (0.6-1.0) mg/dL Est Cr Clr Drug Dosing 50.08 mL/min Estimated GFR (MDRD) > 60.0 ml/min Glucose 116 H (74-106) mg/dL Calcium 10.0 (8.5-10.1) mg/dL Phosphorus (2.6-4.7) mg/dL Magnesium (1.8-2.4) mg/dL Total Bilirubin 0.5 (0.2-1.0) mg/dL AST 19 (15-37) IU/L ALT 36 (14-63) IU/L Alkaline Phosphatase 49 (46-116) U/L Troponin I < 0.050 (0.000-0.056) ng/mL C-Reactive Protein (0.00-0.90) mg/dL Total Protein 7.9 (6.4-8.2) g/dL Albumin 4.6 (3.4-5.0) g/dL Globulin 3.3 (2.6-4.0) g/dL Albumin/Globulin Ratio 1.4 (0.9-1.6) Triglycerides (0-200) mg/dL Cholesterol (50-200) mg/dL LDL Cholesterol, Calc (60-180) mg/dL VLDL Cholesterol (5-55) mg/dL HDL Cholesterol (40-60) mg/dL Cholesterol/HDL Ratio (3.3-6.0) Lipase 201 (73-393) U/L TSH 3rd Generation (0.36-3.74) uIU/mL Urine Color Urine Appearance Urine pH (5.0-8.0) Ur Specific [place] (1.001-1.035) Urine Protein (NEGATIVE) mg/dL Urine Glucose (UA) (NEGATIVE) mg/dL Urine Ketones (NEGATIVE) mg/dL Urine Occult Blood (NEGATIVE) Urine Nitrite (NEGATIVE) Urine Bilirubin (NEGATIVE) Urine Urobilinogen (<2.0) EU/dL Ur Leukocyte Esterase (NEGATIVE) 09/01/19 09/01/19 09/01/19 Range/Units 16:45 17:50 18:27 WBC (4.0-11.0) K/uL RBC (4.30-5.90) M/uL Hgb (12.0-16.0) g/dL Hct (36.0-46.0) % MCV (80.0-98.0) fL MCH (27.0-32.0) pg MCHC (31.0-37.0) g/dL RDW Std Deviation (28.0-62.0) fl RDW Coeff of Sujit (11.0-15.0) % Plt Count (150-400) K/uL MPV (7.40-12.00) fL Add Manual Diff Neutrophils % (Manual) (48.0-80.0) % Band Neutrophils % % Lymphocytes % (Manual) (16.0-40.0) % Monocytes % (Manual) (0.0-15.0) % Eosinophils % (Manual) (0.0-7.0) % Nucleated RBC % /100WBC Absolute Seg Neuts (1.4-5.7) Band Neutrophils # Lymphocytes # (Manual) (0.6-2.4) Monocytes # (Manual) (0.0-0.8) Eosinophils # (Manual) (0.0-0.7) Nucleated RBCs # K/uL Atypical Lymphocytes Smudge Cells Smear Path Review ESR (0-29) mm/hr Lactate 1.8 (0.20-2.00) mmol/L Sodium (136-145) mmol/L Potassium (3.5-5.1) mmol/L Chloride (98-107) mmol/L Carbon Dioxide (21.0-32.0) mmol/L BUN (7.0-18.0) mg/dL Creatinine (0.6-1.0) mg/dL Est Cr Clr Drug Dosing mL/min Estimated GFR (MDRD) ml/min Glucose (74-106) mg/dL Calcium (8.5-10.1) mg/dL Phosphorus (2.6-4.7) mg/dL Magnesium (1.8-2.4) mg/dL Total Bilirubin (0.2-1.0) mg/dL AST (15-37) IU/L ALT (14-63) IU/L Alkaline Phosphatase (46-116) U/L Troponin I (0.000-0.056) ng/mL C-Reactive Protein < 0.20 (0.00-0.90) mg/dL Total Protein (6.4-8.2) g/dL Albumin (3.4-5.0) g/dL Globulin (2.6-4.0) g/dL Albumin/Globulin Ratio (0.9-1.6) Triglycerides (0-200) mg/dL Cholesterol (50-200) mg/dL LDL Cholesterol, Calc (60-180) mg/dL VLDL Cholesterol (5-55) mg/dL HDL Cholesterol (40-60) mg/dL Cholesterol/HDL Ratio (3.3-6.0) Lipase (73-393) U/L TSH 3rd Generation 2.69 (0.36-3.74) uIU/mL Urine Color YELLOW Urine Appearance CLEAR Urine pH 6.0 (5.0-8.0) Ur Specific [place] 1.015 (1.001-1.035) Urine Protein NEGATIVE (NEGATIVE) mg/dL Urine Glucose (UA) NEGATIVE (NEGATIVE) mg/dL Urine Ketones NEGATIVE (NEGATIVE) mg/dL Urine Occult Blood NEGATIVE (NEGATIVE) Urine Nitrite NEGATIVE (NEGATIVE) Urine Bilirubin NEGATIVE (NEGATIVE) Urine Urobilinogen 0.2 (<2.0) EU/dL Ur Leukocyte Esterase NEGATIVE (NEGATIVE) 09/01/19 09/02/19 09/02/19 Range/Units 21:38 05:00 05:00 WBC 31.03 H (4.0-11.0) K/uL RBC 4.13 L (4.30-5.90) M/uL Hgb 12.8 (12.0-16.0) g/dL Hct 37.7 (36.0-46.0) % MCV 91.3 (80.0-98.0) fL MCH 31.0 (27.0-32.0) pg MCHC 34.0 (31.0-37.0) g/dL RDW Std Deviation 43.9 (28.0-62.0) fl RDW Coeff of Sujit 13 (11.0-15.0) % Plt Count 286 (150-400) K/uL MPV 11.20 (7.40-12.00) fL Add Manual Diff YES Neutrophils % (Manual) 24 L (48.0-80.0) % Band Neutrophils % 4 % Lymphocytes % (Manual) 62 H (16.0-40.0) % Monocytes % (Manual) 9 (0.0-15.0) % Eosinophils % (Manual) 1 (0.0-7.0) % Nucleated RBC % 0.0 /100WBC Absolute Seg Neuts 7.4 H (1.4-5.7) Band Neutrophils # 1.2 Lymphocytes # (Manual) 19.2 H (0.6-2.4) Monocytes # (Manual) 2.8 H (0.0-0.8) Eosinophils # (Manual) 0.3 (0.0-0.7) Nucleated RBCs # 0 K/uL Atypical Lymphocytes Smudge Cells FEW Smear Path Review ESR 4 (0-29) mm/hr Lactate (0.20-2.00) mmol/L Sodium (136-145) mmol/L Potassium (3.5-5.1) mmol/L Chloride (98-107) mmol/L Carbon Dioxide (21.0-32.0) mmol/L BUN (7.0-18.0) mg/dL Creatinine (0.6-1.0) mg/dL Est Cr Clr Drug Dosing mL/min Estimated GFR (MDRD) ml/min Glucose (74-106) mg/dL Calcium (8.5-10.1) mg/dL Phosphorus 4.2 (2.6-4.7) mg/dL Magnesium 2.1 (1.8-2.4) mg/dL Total Bilirubin (0.2-1.0) mg/dL AST (15-37) IU/L ALT (14-63) IU/L Alkaline Phosphatase (46-116) U/L Troponin I (0.000-0.056) ng/mL C-Reactive Protein (0.00-0.90) mg/dL Total Protein (6.4-8.2) g/dL Albumin (3.4-5.0) g/dL Globulin (2.6-4.0) g/dL Albumin/Globulin Ratio (0.9-1.6) Triglycerides 132 (0-200) mg/dL Cholesterol 206 H (50-200) mg/dL LDL Cholesterol, Calc 126 (60-180) mg/dL VLDL Cholesterol 26 (5-55) mg/dL HDL Cholesterol 54 (40-60) mg/dL Cholesterol/HDL Ratio 3.8 (3.3-6.0) Lipase (73-393) U/L TSH 3rd Generation (0.36-3.74) uIU/mL Urine Color Urine Appearance Urine pH (5.0-8.0) Ur Specific [place] (1.001-1.035) Urine Protein (NEGATIVE) mg/dL Urine Glucose (UA) (NEGATIVE) mg/dL Urine Ketones (NEGATIVE) mg/dL Urine Occult Blood (NEGATIVE) Urine Nitrite (NEGATIVE) Urine Bilirubin (NEGATIVE) Urine Urobilinogen (<2.0) EU/dL Ur Leukocyte Esterase (NEGATIVE) 09/02/19 Range/Units 05:00 WBC (4.0-11.0) K/uL RBC (4.30-5.90) M/uL Hgb (12.0-16.0) g/dL Hct (36.0-46.0) % MCV (80.0-98.0) fL MCH (27.0-32.0) pg MCHC (31.0-37.0) g/dL RDW Std Deviation (28.0-62.0) fl RDW Coeff of Sujit (11.0-15.0) % Plt Count (150-400) K/uL MPV (7.40-12.00) fL Add Manual Diff Neutrophils % (Manual) (48.0-80.0) % Band Neutrophils % % Lymphocytes % (Manual) (16.0-40.0) % Monocytes % (Manual) (0.0-15.0) % Eosinophils % (Manual) (0.0-7.0) % Nucleated RBC % /100WBC Absolute Seg Neuts (1.4-5.7) Band Neutrophils # Lymphocytes # (Manual) (0.6-2.4) Monocytes # (Manual) (0.0-0.8) Eosinophils # (Manual) (0.0-0.7) Nucleated RBCs # K/uL Atypical Lymphocytes Smudge Cells Smear Path Review Cancelled ESR (0-29) mm/hr Lactate (0.20-2.00) mmol/L Sodium (136-145) mmol/L Potassium (3.5-5.1) mmol/L Chloride (98-107) mmol/L Carbon Dioxide (21.0-32.0) mmol/L BUN (7.0-18.0) mg/dL Creatinine (0.6-1.0) mg/dL Est Cr Clr Drug Dosing mL/min Estimated GFR (MDRD) ml/min Glucose (74-106) mg/dL Calcium (8.5-10.1) mg/dL Phosphorus (2.6-4.7) mg/dL Magnesium (1.8-2.4) mg/dL Total Bilirubin (0.2-1.0) mg/dL AST (15-37) IU/L ALT (14-63) IU/L Alkaline Phosphatase (46-116) U/L Troponin I (0.000-0.056) ng/mL C-Reactive Protein (0.00-0.90) mg/dL Total Protein (6.4-8.2) g/dL Albumin (3.4-5.0) g/dL Globulin (2.6-4.0) g/dL Albumin/Globulin Ratio (0.9-1.6) Triglycerides (0-200) mg/dL Cholesterol (50-200) mg/dL LDL Cholesterol, Calc (60-180) mg/dL VLDL Cholesterol (5-55) mg/dL HDL Cholesterol (40-60) mg/dL Cholesterol/HDL Ratio (3.3-6.0) Lipase (73-393) U/L TSH 3rd Generation (0.36-3.74) uIU/mL Urine Color Urine Appearance Urine pH (5.0-8.0) Ur Specific [place] (1.001-1.035) Urine Protein (NEGATIVE) mg/dL Urine Glucose (UA) (NEGATIVE) mg/dL Urine Ketones (NEGATIVE) mg/dL Urine Occult Blood (NEGATIVE) Urine Nitrite (NEGATIVE) Urine Bilirubin (NEGATIVE) Urine Urobilinogen (<2.0) EU/dL Ur Leukocyte Esterase (NEGATIVE) DILLAN Results - Last 24 hrs: Microbiology 09/01/19 19:50 Anaerobic Blood Culture - Final Blood - Venous - Lab Draw Med Orders - Current: Current Medications Acetaminophen (Tylenol) 650 mg PO Q4H PRN PRN Reason: Pain (Mild 1-3)/fever Albuterol/Ipratropium (Duoneb 3.0-0.5 Mg/3 Ml) 3 ml NEB Q4HRRT PRN PRN Reason: Shortness Of Breath/wheezing Aspirin (Aspirin) 81 mg PO DAILY [facility] Last Admin: 09/02/19 09:18 Dose: 81 mg Atorvastatin Calcium (Lipitor) 40 mg PO BEDTIME [facility] Last Admin: 09/01/19 23:20 Dose: 40 mg Fluticasone Propionate (Flonase) 0 gm NASBOTH DAILY [facility] Last Admin: 09/02/19 09:26 Dose: Not Given Metoprolol Succinate (Toprol Xl) 50 mg PO DAILY [facility] Last Admin: 09/02/19 09:18 Dose: 50 mg Ondansetron HCl (Zofran) 4 mg IVPUSH Q4H PRN PRN Reason: Nausea/Vomiting Sodium Chloride (Saline Flush) 10 ml FLUSH ASDIRECTED PRN PRN Reason: Keep Vein Open Last Admin: 09/01/19 17:12 Dose: 10 ml Sodium Chloride (Saline Flush) 2.5 ml FLUSH ASDIRECTED PRN PRN Reason: Keep Vein Open Last Admin: 09/01/19 17:12 Dose: 2.5 ml Discontinued Medications Acetaminophen (Tylenol Extra Strength) 1,000 mg PO ONETIME ONE Stop: 09/01/19 18:38 Last Admin: 09/01/19 18:48 Dose: 1,000 mg Gadobenate Dimeglumine (Multihance) 20 ml IVPUSH ONETIME STA Stop: 09/02/19 09:49 Last Admin: 09/02/19 09:49 Dose: 14 ml Sodium Chloride (Normal Saline) 1,000 mls @ 999 mls/hr IV STAT ONE Stop: 09/01/19 18:03 Last Admin: 09/01/19 17:10 Dose: 999 mls/hr Meclizine HCl (Antivert) 25 mg PO ONETIME ONE Stop: 09/01/19 17:04 Last Admin: 09/01/19 17:11 Dose: 25 mg Metoprolol Succinate (Toprol Xl) 50 mg PO ASDIRECTED DEVIKA Metoprolol Succinate (Toprol Xl) 50 mg PO ASDIRECTED [facility] Ondansetron HCl (Zofran) 4 mg IVPUSH ONETIME ONE Stop: 09/01/19 17:04 Last Admin: 09/01/19 17:11 Dose: 4 mg
--- NOTE | 2019-09-04 09:38 | MR ---
EXAM DATE: 09/01/19 PATIENT'S AGE: 69 Patient: HAJA ANNE Facility: [facility], [place], [place], operated by [facility] . Site : [id number] Study: MRI-Head Angio [id number]/[id number] 11:01:45 AM Ordering Physician: Tracy Gant Final Report: INDICATION: Dizziness. TECHNIQUE: MRI brain: Multiplanar multisequence MR images were acquired prior to and following administration of intravenous contrast. MRA head: 3D [id number] images were acquired. MRA neck: 2D and 3D [id number] images were acquired. COMPARISON: CT brain 09/01/2019. FINDINGS: MRI brain: The ventricles and sulci are within normal limits for patient age. No mass effect or midline shift. Few small T2 FLAIR hyperintensities in the supratentorial white matter, nonspecific. No intracranial hemorrhage or pathologic extra-axial fluid collection. No diffusion restriction to suggest acute infarction. No pathologic intracranial enhancement. The major arterial flow voids of the skullbase are preserved. The globes are symmetric in size. The paranasal sinuses are well aerated. The mastoid air cells are clear. MRA head: The visualized internal carotid, middle cerebral, and anterior cerebral arteries are patent without significant narrowing. The vertebral, basilar, and posterior cerebral arteries are patent without significant narrowing. No intracranial aneurysm. MRA neck: The left vertebral artery is dominant. No significant narrowing of the common carotid, internal carotid, external carotid, or vertebral arteries. IMPRESSION: 1. No acute intracranial abnormality. 2. No MRA abnormality of the visualized intracranial or major cervical arteries. 3. Few small T2 FLAIR hyperintensities in the supratentorial white matter are nonspecific, though differential considerations favor sequelae of minimal chronic microvascular ischemic changes or migraine headaches. Dictated by Andrea Mabry MD @ Sep 02 2019 11:15AM Signed by: Andrea Mabry MD @09/02/2019 11:15:18 AM (Electronic Signature) Report Signed by Proxy. [facility]
== END 2019-09-02 14:20 | disposition home or self-care (01) ==
LOC: MW.ED 16:30 → MW.MS 19:54
PROVIDERS: ADMIT Student in an Organized Health Care Education/Training Program; ATTEND Student in an Organized Health Care Education/Training Program
DX: R42 Dizziness and giddiness (principal); D72.829 Elevated white blood cell count, unspecified; R11.2 Nausea with vomiting, unspecified; Z88.2 Allergy status to sulfonamides; I10 Essential (primary) hypertension; Z79.899 Other long term (current) drug therapy
CPT/HCPCS: 36415; 70450; 70544; 70547; 70553; 71045; 80053; 80061; 81003; 83605; 83690; 83735; 84100; 84443; 84484; 85025; 85652; 86140; 87040; 87086; 88104; 93005; 97161; A9270; A9577; J2405; J7030; 96361; 96374; 99285-25; G0378